=== PATIENT | female | born 1985 | race African-American/Black ===

== ENCOUNTER 2016-05-08 08:17 | Inpatient (IN) | payer BC ==
[~2016-05-08] VITALS: Ht 165.1 cm; Wt 79.5 kg
[2016-05-18] MEDS ORDERED: OXYTOCIN 30U/ 0.9% NaCL 500ML 500 ML IV PRN (20:46)
[2016-05-18] MEDS ORDERED: OXYTOCIN 30U/ 0.9% NaCL 500ML 500 ML IV ONE (20:46)
[2016-05-18] MEDS ORDERED: MISOPROSTOL 25 MCG TABLET ONE (20:49)
[2016-05-18 21:00] VITALS: BP 107/64
[2016-05-18] MEDS ORDERED: CALCIUM CARBONATE 500 MG TAB.CHEW PO PRN (21:00)
[2016-05-18] MEDS ORDERED: SODIUM CHLORIDE FLUSH 10ML SYR IVF PRN (21:00)
[2016-05-18] MEDS ORDERED: ALUMINUM/MAG/SIMETHICONE 30 ML UDC PO PRN (21:00)
[2016-05-18] MEDS ORDERED: ONDANSETRON 2MG/ML, 2ML IVPush PRN (21:00)
[2016-05-18] MEDS ORDERED: FENTANYL PF 100 MCG/2ML IV PRN (21:00)
[2016-05-18] MEDS ORDERED: MISOPROSTOL 25 MCG TABLET SL PRN (21:00)
[2016-05-18] MEDS ORDERED: PLEASE ENTER HEIGHT AND WEIGHT MC SCH (21:09)
[2016-05-18] MEDS ORDERED: LIDOCAINE 1%, 20ML ONE (21:10)
[2016-05-18] MEDS ORDERED: MISOPROSTOL 200 MCG TABLET ONE (21:11)
[2016-05-18] MEDS ORDERED: OXYTOCIN 30U/ 0.9% NaCL 500ML 500 ML ONE (21:11)
[2016-05-18 21:29] LABS: HEMOGLOBIN 10.1 g/dL (11.7-16.4)
[2016-05-18] MEDS ORDERED: FENTANYL PF 100 MCG/2ML ONE (22:24)
[2016-05-18] MEDS: FENTANYL PF 100 MCG/2ML IVPush PRN (22:26)
[2016-05-19] MEDS ORDERED: FENTANYL PF 100 MCG/2ML ONE (00:37)
[2016-05-19] MEDS: NICOTINE 14MG/24 HR PATCH.TD24 TD SCH (00:42)
[2016-05-19] MEDS: FENTANYL PF 100 MCG/2ML IVPush PRN (00:42)
[2016-05-19] MEDS: D5%-LACTATED RINGERS 1,000 ML IV SCH ×2 (00:43→13:15)
[2016-05-19] MEDS: LACTATED RINGERS 1,000 ML IV SCH ×5 (00:49→18:15)
[2016-05-19] MEDS ORDERED: FENTANYL/BUPIV./NS/PF 250 ML EPIDCONT ONE (01:19)
[2016-05-19] MEDS ORDERED: LIDOCAINE/PF 1.5%-EPI 1:200K, 30ML ONE (01:21)
[2016-05-19] MEDS ORDERED: BUPIVACAINE 0.25% ONE (01:21)
[2016-05-19] MEDS ORDERED: EPHEDRINE 50 MG/ML, 1ML ONE (02:18)
[2016-05-19] MEDS ORDERED: NEWBORN KIT ONE (05:03)
[2016-05-19] MEDS ORDERED: FENTANYL/BUPIV./NS/PF 250 ML EPIDCONT SCH (06:50)
[2016-05-19] MEDS ORDERED: LACTATED RINGERS 1,000 ML IV SCH (06:50)
[2016-05-19] MEDS ORDERED: EPHEDRINE 50 MG/ML, 1ML IVPush PRN (07:00)
[2016-05-19] MEDS ORDERED: LACTATED RINGERS 1,000 ML IVBOLUS PRN (07:00)
[2016-05-19] MEDS ORDERED: NALOXONE 0.4 MG/ML, 1ML IVPush PRN (07:00)
[2016-05-19] MEDS ORDERED: FERR324T5 PO (07:36)
[2016-05-19] MEDS ORDERED: LEVO137T2 PO (07:36)
[2016-05-19] MEDS ORDERED: PREN1TAB69 PO (07:36)
[2016-05-19] MEDS ORDERED: LIDOCAINE/MPF 2%-EPI 1:200K, 20 ML ONE (17:17)
[2016-05-19] MEDS ORDERED: CEFAZOLIN 1,000 MG ONE (17:18)
[2016-05-19] MEDS ORDERED: OXYTOCIN 10 UNITS/ML, 1ML ONE (17:18)
[2016-05-19] MEDS ORDERED: HYDROmorphone 2 MG/ML, 1ML ONE (17:46)
[2016-05-19] MEDS: OXYTOCIN 30U/ 0.9% NaCL 500ML 500 ML IV SCH (18:15)
[2016-05-19] MEDS ORDERED: ONDANSETRON 2MG/ML, 2ML IV PRN (18:30)
[2016-05-19] MEDS ORDERED: OXYcodone/APAP 5/325MG TABLET PO PRN (18:30)
[2016-05-19] MEDS ORDERED: CALCIUM CARBONATE 500 MG TAB.CHEW PO PRN (18:30)
[2016-05-19] MEDS ORDERED: ACETAMINOPHEN 325 MG TABLET PO PRN (18:30)
[2016-05-19] MEDS ORDERED: METOCLOPRAMIDE 5 MG/ML, 2ML IV PRN (18:30)
[2016-05-19] MEDS ORDERED: SIMETHICONE 80 MG CHEW TAB PO PRN (18:30)
[2016-05-19] MEDS ORDERED: KETOROLAC 30 MG/1 ML ONE (18:31)
[2016-05-19] MEDS: KETOROLAC 30 MG/1 ML IV SCH (18:34)
[2016-05-19] MEDS ORDERED: OXYcodone 5 MG/5 ML ORAL.SOL UDC ONE (18:51)
[2016-05-19] MEDS ORDERED: OXYcodone 5 MG/5 ML ORAL.SOL UDC PO PRN (19:00)
[2016-05-19] MEDS ORDERED: OXYcodone 5 MG/5 ML ORAL.SOL UDC PO ONE (19:02)
[2016-05-19 20:10] VITALS: BP 126/85
[2016-05-19] MEDS ORDERED: OXYTOCIN 30U/ 0.9% NaCL 500ML 500 ML IV PRN (20:46)
[2016-05-19] MEDS: OXYcodone/APAP 5/325MG TABLET PO PRN (22:57)
[2016-05-20 00:23] VITALS: BP 112/73
[2016-05-20] MEDS: KETOROLAC 30 MG/1 ML IV SCH ×4 (01:09→20:13)
[2016-05-20] MEDS: NICOTINE 14MG/24 HR PATCH.TD24 TD SCH ×2 (01:27→23:44)
[2016-05-20] MEDS: LACTATED RINGERS 1,000 ML IV SCH ×5 (03:01→18:15)
[2016-05-20] MEDS: OXYTOCIN 30U/ 0.9% NaCL 500ML 500 ML IV SCH ×2 (04:15→14:15)
[2016-05-20 04:30] VITALS: BP 114/77
[2016-05-20] MEDS: OXYcodone/APAP 5/325MG TABLET PO PRN ×3 (04:32→20:13)
[2016-05-20] MEDS ORDERED: PRENATAL VIT/IRON/FA 1 EACH TABLET ONE (07:36)
[2016-05-20] MEDS: DOCUSATE 100 MG CAPSULE PO PRN ×2 (07:50→20:13)
[2016-05-20] MEDS: PRENATAL VIT/IRON/FA 1 EACH TABLET PO SCH (07:51)
[2016-05-20 08:30] VITALS: BP 108/68
[2016-05-20] MEDS: LEVOTHYROXINE 137 MCG TABLET PO SCH (09:31)
[2016-05-20 12:20] VITALS: BP 119/77
[2016-05-20 16:15] VITALS: BP 106/75
[2016-05-20 21:04] VITALS: BP 120/84
[2016-05-21] MEDS: OXYcodone/APAP 5/325MG TABLET PO PRN ×4 (00:15→13:52)
[2016-05-21] MEDS: OXYTOCIN 30U/ 0.9% NaCL 500ML 500 ML IV SCH ×2 (00:15→10:15)
[2016-05-21] MEDS: LACTATED RINGERS 1,000 ML IV SCH ×4 (00:15→10:15)
[2016-05-21] MEDS: KETOROLAC 30 MG/1 ML IV SCH (01:45)
[2016-05-21] MEDS: IBUPROFEN 600 MG TABLET PO PRN ×3 (01:48→13:52)
[2016-05-21] MEDS ORDERED: OXYC-302 PO (03:07)
[2016-05-21] MEDS ORDERED: IBUP-1222 PO (03:08)
[2016-05-21] MEDS ORDERED: DOCU-30 PO (03:11)
[2016-05-21] MEDS: LEVOTHYROXINE 137 MCG TABLET PO SCH (05:58)
[2016-05-21 07:00] LABS: HEMOGLOBIN 8.5 g/dL (11.7-16.4)
[2016-05-21 08:12] VITALS: BP 119/81
[2016-05-21] MEDS: DOCUSATE 100 MG CAPSULE PO PRN (08:21)
[2016-05-21] MEDS: PRENATAL VIT/IRON/FA 1 EACH TABLET PO SCH (08:21)
[2016-05-21] MEDS ORDERED: NICO1PAT4 TD (15:27)
== END 2016-05-21 16:52 | disposition home or self-care (01) | DRG 765 ==
LOC: LDIP 05-18 20:09 → 2NW 05-19 19:57
PROVIDERS: ADMIT Obstetrics & Gynecology; ATTEND Obstetrics & Gynecology
PROC: 10D00Z1 Extraction of Products of Conception, Low, Open Approach (ICD-10-PCS; principal; 2016-05-18)
DX: O76 Abnormality in fetal heart rate and rhythm complicating labor and delivery (principal); O99.354 Diseases of the nervous system complicating childbirth; O48.0 Post-term pregnancy; O99.02 Anemia complicating childbirth; D64.9 Anemia, unspecified; O99.284 Endocrine, nutritional and metabolic diseases complicating childbirth; O77.0 Labor and delivery complicated by meconium in amniotic fluid; O99.334 Smoking (tobacco) complicating childbirth; G43.909 Migraine, unspecified, not intractable, without status migrainosus; E89.0 Postprocedural hypothyroidism; F17.210 Nicotine dependence, cigarettes, uncomplicated; Z3A.41 41 weeks gestation of pregnancy; Z87.410 Personal history of cervical dysplasia; Z37.0 Single live birth; Z88.1 Allergy status to other antibiotic agents; Z88.8 Allergy status to other drugs, medicaments and biological substances; Z87.59 Personal history of other complications of pregnancy, childbirth and the puerperium; Z88.0 Allergy status to penicillin
CPT/HCPCS: 36415; 82803; 85025; 86850; 86900; J0690; J1170; J1885; J3010; J3490; J2590; J7120; J7121

== ENCOUNTER 2016-05-15 23:49 | Outpatient (CLI) | payer BC ==
[~2016-05-15] VITALS: Ht 165.1 cm; Wt 78.0 kg
[2016-05-16] MEDS ORDERED: DIPHENHYDRAMINE 25 MG CAPSULE ONE (00:15)
[2016-05-16] MEDS ORDERED: OXYcodone/APAP 10/325MG TABLET ONE (00:15)
[2016-05-16 00:18] VITALS: BP 113/72
[2016-05-16] MEDS ORDERED: DIPHENHYDRAMINE 50 MG CAPSULE PO PRN (00:30)
[2016-05-16] MEDS ORDERED: PLEASE ENTER ALLERGIES MC SCH ×2 (00:30)
[2016-05-16] MEDS ORDERED: OXYcodone/APAP 10/325MG TABLET PO ONE (00:30)
== END 2016-05-16 01:40 | disposition home or self-care (01) ==
LOC: LDOP 23:49
PROVIDERS: ATTEND Obstetrics & Gynecology
DX: O62.9 Abnormality of forces of labor, unspecified (principal); O99.283 Endocrine, nutritional and metabolic diseases complicating pregnancy, third trimester; E03.9 Hypothyroidism, unspecified; O99.333 Smoking (tobacco) complicating pregnancy, third trimester; F17.200 Nicotine dependence, unspecified, uncomplicated; O48.0 Post-term pregnancy; Z3A.41 41 weeks gestation of pregnancy
CPT/HCPCS: 59025; 99201; G0463